=== PATIENT | male | born 1940 | race Caucasian/White ===

== ENCOUNTER 2017-04-06 18:17 | Inpatient (IN) | payer OTHER ==
[~2017-04-06] VITALS: Ht 190.5 cm; Wt 121.0 kg
--- NOTE | ~2017-04-06 | EKG ---
[address] [place] [address] ELECTROCARDIOGRAM REPORT Name: DANNY WEAVER Room #: 207-P ADM IN M.R.#: [id number] Admission: 04/06/17 Attend Phys: Steven Davidson MD Discharge: Date of : 36 Report #: [id number] THIS REPORT FOR: //name// [facility] ED Test Date: 2017-04-06 Test Time: 18:21:30 Pat Name: DANNY WEAVER Department: Room: 207 Gender: M Spinning Doffer: KIRSTEN : 1940 Requested By: Donny Andres Order Number: [id number] MD: William Garrett Measurements Intervals [place] Rate: 125 P: 62 NM: 232 QRS: 64 QRSD: 148 T: -28 QT: 358 QTc: 517 Interpretive Statements Atrial flutter with 2-1 AV conduction Right bundle branch block No previous ECG available for comparison Electronically Signed On 04-07-2017 7:50:43 CDT by William Garrett [email or web address] <ELECTRONICALLY SIGNED> By: William Garrett MD, [facility] 04/07/17 0750 20 20 William Garrett MD, [facility] /EPI
--- NOTE | ~2017-04-06 | 2DMMODE ---
[facility] [address] [place] [address] 2 D/M-MODE ECHOCARDIOGRAM Name: DANNY WEAVER Room #: 207-P ADM IN M.R.#: [id number] Admission: 04/06/17 Attend Phys: Steven Davidson, Discharge: Date of : 36 Date of Service: 04/07/17 0921 Report #: [id number] THIS REPORT FOR: //name// APPROVED REPORT Study performed: 04/07/2017 08:21:07 EXAM: Comprehensive 2D, Doppler, and color-flow Echocardiogram Patient Location: Echo lab Room #: 207 Status: routine Other Information Study Quality: Good Indications Dyspnea Hypertension/HDD S^P Cardiopulmonary arrest. 2D Dimensions RVDd: 42.26 mm LVEF(%): 68.04 (>50%) IVSd: 13.41 (7-11mm) LVOT Diam: 23.50 (18-24mm) LVDd: 52.04 mm PWd: 14.63 (7-11mm) Ascending Ao: 31.57 (22-36mm) LVDs: 32.16 (25-40mm) Aortic Root: 33.79 mm IVC: 26.00 mm Muller's LVEF: 68.04 % Volumes Left Atrial Volume (Systole) Single Plane 4CH: 84.15 mL Single Plane 2CH: 96.21 mL LA ESV Index: 39.00 mL/m2 Aortic Valve AoV Peak Kenny.: 1.79 m/s AO Peak Gr.: 12.84 mmHg LVOT Max P.00 mmHg LVOT Max V: 1.22 m/s ROXANNA Vmax: 2.96 cm2 AI Vmax: 2.98 m/s AI Marathon: 1.75 m/s2 AI PHT: 494.53 ms Mitral Valve E/A Ratio: 1.3 [facility] [place] [place] [address] 2 D/M-MODE ECHOCARDIOGRAM Name: DANNY WEAVER Room #: 207-P [facility] IN M.R.#: [id number] Admission: 04/06/17 Attend Phys: Steven Davidson, Discharge: Date of : 36 Date of Service: 04/07/17 0921 Report #: [id number] Decel. Time: 232.94 ms MV E Max Kenny.: 1.02 m/s MV A Kenny.: 0.81 m/s MV PHT: 67.55 ms IVRT: 83.04 ms Pulmonary Valve PV Peak Kenny.: 1.26 m/s PV Peak Gr.: 6.36 mmHg Pulmonary Vein P Vein S: 0.53 m/s P Vein A: 0.31 m/s P Vein D: 0.63 m/s P Vein A Dur.: 106.1 msec P Vein S/D Ratio: 0.84 Tricuspid Valve RAP Estimate: 10.00 mmHg Left Ventricle The left ventricle is normal size. There is normal LV segmental wall motion. Mild concentric left ventricular hypertrophy. The left ventricular systolic function is normal. The left ventricular ejection fraction is within the normal range. LVEF is 60-65%. Grade II - pseudonormal filling dynamics. Right Ventricle Right ventricle is at the upper limits of normal. The right ventricular systolic function is normal. Atria Left atrium is mildly dilated. Right atrium is mildly dilated. Aortic Valve The aortic valve is normal in structure. Mild aortic regurgitation. There is no aortic valvular stenosis. Mitral Valve The mitral valve is normal in structure. Trace mitral regurgitation. No evidence of mitral valve stenosis. Tricuspid Valve The tricuspid valve is normal in structure. There is no tricuspid valve regurgitation noted. Pulmonic Valve The pulmonary valve is normal in structure. There is no pulmonic [address] [address] 2 D/M-MODE ECHOCARDIOGRAM Name: DANNY WEAVER Room #: 207-P ADM IN .R.#: [id number] Admission: 04/06/17 Attend Phys: Steven Davidson, Discharge: Date of : 36 Date of Service: 04/07/17 0921 Report #: [id number] valvular regurgitation. Great Vessels The aortic root is normal in size. IVC is dilated and collapses >50% with inspiration. Pericardium There is no pericardial effusion. <Conclusion> The left ventricle is normal size. Mild concentric left ventricular hypertrophy. The left ventricular systolic function is normal. Grade II - pseudonormal filling dynamics. Right ventricle is at the upper limits of normal. Left atrium is mildly dilated. Right atrium is mildly dilated. Mild aortic regurgitation. Trace mitral regurgitation. There is no pericardial effusion. <ELECTRONICALLY SIGNED> By: Karthik Brewer MD 04/07/17920 0 0 Karthik Brewer MD /INF
[2017-04-06 18:19] VITALS: BP 112/59
[2017-04-06 18:40] LABS: ABSOLUTE NEUTROPHILS 6.4 thou/uL (1.4-8.2); BASOPHILS 0.3 % (0.0-2.0); EOSINOPHILS 0.8 % (0.0-3.0); HEMATOCRIT 34.5 % (42.0-52.0); HEMOGLOBIN 11.3 gm/dL (14.0-18.0); LYMPHOCYTES 10.5 % (24.0-44.0); MCH 29.6 pg (26.0-34.0); MCHC 32.7 g/dL (28.0-37.0); MCV 90.6 fL (80.0-100.0); MONOCYTES 9.3 % (1.0-8.0); PLATELET COUNT 213 thou/uL (150-400); POLYS 79.1 % (36.0-66.0); RBC 3.81 mil/uL (4.50-6.00)
[2017-04-06 18:42] LABS: MANUAL DIFF NO
[2017-04-06 18:52] LABS: ANION GAP 8 mmol/L (7-16); BUN 15 mg/dL (7-18); CALCIUM 7.9 mg/dL (8.5-10.1); CHLORIDE 108 mmol/L (98-107); CO2 26 mmol/L (21-32); CREATININE 0.9 mg/dL (0.7-1.3); GLUCOSE 208 mg/dL (74-106); POTASSIUM 3.7 mmol/L (3.5-5.1); SODIUM 142 mmol/L (136-145)
[2017-04-06 18:54] LABS: APTT 23.3 Seconds (24.5-32.8); PROTIME 10.7 Seconds (9.3-11.4)
[2017-04-06 19:13] LABS: ALBUMIN 2.8 g/dL (3.4-5.0); ALKALINE PHOSPHATASE 56 U/L (46-116); CK-MB MASS 1.2 ng/mL (<0.5-3.6); MAGNESIUM 1.8 mg/dL (1.8-2.4); NT-PRO BRAIN NAT PEPTIDE 79 pg/mL (<300); SGOT 20 U/L (15-37); SGPT 18 U/L (30-65); TOTAL BILIRUBIN 0.4 mg/dL (<0.1-1.0); TOTAL PROTEIN 6.5 g/dL (6.4-8.2); TROPONIN-I < 0.04 ng/mL (<0.04-0.07)
[2017-04-06] MEDS ORDERED: ALLEGRA ALLERG180 MG PO (19:40)
[2017-04-06] MEDS ORDERED: LIPITOR 20 MG T20 M1 PO (19:47)
[2017-04-06] MEDS ORDERED: RAPAFLO8 MG PO (19:48)
[2017-04-06] MEDS ORDERED: VITAMINC500 PO (19:48)
[2017-04-06] MEDS ORDERED: UNICOMPLEX M TA1 TA1 PO (19:48)
[2017-04-06] MEDS ORDERED: AMBIEN 5 MG TABL5 M1 PO (19:51)
[2017-04-06] MEDS ORDERED: VIAGRA25 MG (19:52)
[2017-04-06] MEDS ORDERED: DUREZOL5 ML OP (19:54)
[2017-04-06 21:09] VITALS: BP 130/76
[2017-04-06 22:28] LABS: CHOLESTEROL 114 mg/dL (<200); HDL CHOLESTEROL 53 mg/dL (>40); LDL CHOLESTEROL 42 mg/dL (<100); TC:HDL 2.2 Ratio (Not establshd); TRIGLYCERIDE 96 mg/dL (<150); VLDL 19 mg/dL (<40)
[2017-04-07 03:32] VITALS: BP 123/68
[2017-04-07 05:54] LABS: HEMATOCRIT 30.7 % (42.0-52.0); HEMOGLOBIN 10.3 gm/dL (14.0-18.0); MCH 29.9 pg (26.0-34.0); MCHC 33.5 g/dL (28.0-37.0); MCV 89.2 fL (80.0-100.0); RBC 3.44 mil/uL (4.50-6.00); RDW 14.5 % (10.5-14.5); WBC 6.8 thou/uL (4.0-11.0)
[2017-04-07 06:02] LABS: CALCIUM 8.3 mg/dL (8.5-10.1); CREATININE 0.9 mg/dL (0.7-1.3)
[2017-04-07 07:40] VITALS: BP 117/63
[2017-04-07] MEDS ORDERED: KEFLEX500 MG PO (10:39)
[2017-04-07 10:58] VITALS: BP 117/63
[2017-04-08 02:11] LABS: GLYCOHEMOGLOBIN (HGB A1C) 5.7 % (4.8-5.6)
== END 2017-04-07 11:41 | disposition home or self-care (01) | DRG 917 ==
LOC: ER 18:17 → 2N 19:50 → EROBS 19:50 → 2N 20:54
PROVIDERS: Emergency Medicine; Nurse Practitioner Family
DX: T88.59XA Other complications of anesthesia, initial encounter (principal); I46.8 Cardiac arrest due to other underlying condition; E78.5 Hyperlipidemia, unspecified; I10 Essential (primary) hypertension; Z96.653 Presence of artificial knee joint, bilateral; I71.4 Abdominal aortic aneurysm, without rupture; Z96.641 Presence of right artificial hip joint; G89.29 Other chronic pain; M54.9 Dorsalgia, unspecified; Z87.81 Personal history of (healed) traumatic fracture; Z87.891 Personal history of nicotine dependence; Z79.899 Other long term (current) drug therapy; Z79.82 Long term (current) use of aspirin
CPT/HCPCS: 10081